=== PATIENT | female | born 1990 | race African-American/Black ===

== ENCOUNTER 2016-05-23 14:42 | Emergency (ER) | payer OTHER ==
--- NOTE | 2016-05-23 16:45 | EDDOCDS ---
Physician Documentation [facility] Name: Maribeth Birch Age: 26 yrs Sex: Female : 1990 Arrival Date: 05/23/2016 Time: 14:42 Bed TR8 Private MD: RIN Grimaldo Disposition: 05/23/16 16:15 Discharged to Home/Self Care. Impression: Acute upper respiratory infections of multiple and unspecified sites, Other viral conjunctivitis. - Condition is Stable. - Discharge Instructions: Eye - Viral Conjunctivitis, Upper Respiratory Infection, Adult. - Prescriptions for Prednisone 20 mg Oral Tablet - take 1 tablet by ORAL route once daily for 5 days; 5 tablet. Acular 0.5 % Ophthalmic Drops - instill 1 drop by OPHTHALMIC route every 6 hours into affected eye(s); 5 milliliter. Guaifenesin- DM 10-100 mg/5 mL Oral Liquid - take 5 milliliter by ORAL route every 4 hours As needed; 100 milliliter. - Medication Reconciliation, Local Pharmacy Hours form. - Follow up: RIN Grimaldo; When: Call to arrange an appointment; Reason: Wound/Symptom Recheck, Recheck today's complaints, Worsening of conditions, Continuance of care. - Problem is an ongoing problem. - Symptoms are unchanged. Historical: - Allergies: No known drug Allergies; - Home Meds: 1. none - PMHx: none; - PSHx: Breast Augmentation; - Social history: Smoking status: Patient states was never smoker of tobacco. No barriers to communication noted, The patient speaks fluent Serbian. - Family history: No immediate family members are acutely ill. - : The pt / caregiver states he / she is not on anticoagulants. Home medication list is obtained from the patient. - Exposure Risk Screening:: None identified. 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 6 in. (167.64 cm) (R); Pain 5/10; 14:46 Body Mass Index 20.98 (58.97 kg, 167.64 cm) gr2 MDM: 15:37 Strep Screen, Nursing ordered. cc10 16:14 GATS (NEGATIVE STREP SCREEN) Ordered. EDMS 16:22 Financial registration complete. ks16 16:33 [facility] Payment Agreement was scanned into MEDHOST and attached to record. [email or web address] Signatures: Dispatcher MedHost EDMS Ruslan Barger, RN RN Noemi Keen RN RN Desmond Posey, PA-C PA-C cc10 Nuria Nelson, Reg Reg ks16 The chart was reviewed and I authenticate all verbal orders and agree with the evaluation and treatment provided.Attachments: 16:33 [facility] Payment Agreement [email or web address] MTDD
--- NOTE | 2016-05-23 16:45 | EDDOCDS ---
Nurse's Notes [facility] Name: Maribeth Birch Age: 26 yrs Sex: Female : 1990 Arrival Date: 05/23/2016 Time: 14:42 Bed TR8 Private MD: RIN Grimaldo Diagnosis: Acute upper respiratory infections of multiple and unspecified sites;Other viral conjunctivitis Presentation: 05/23 14:55 Presenting complaint: Patient states: sore throat since yesterday today headache kpj redness and drainage from both eyes. Mechanism of Injury: No Mechanism of Injury. The patient denies any loss of vision. Adult Sepsis Screening: The patient does not have new or worsening altered mentation. Patient's respiratory rate is less than 22. Systolic blood pressure is greater than 100. Patient has a qSOFA score of 0- Negative Sepsis Screen. Suicide/Homicide risk assessment- the patient denies having any suicidal and/or homicidal ideations and does not present with any other emotional, behavioral or mental health complaints. Status: The patient is a dependent. Transition of care: patient was not received from another setting of care. 14:55 Acuity: REBECA Level 5 [facility] 14:55 Method Of Arrival: Walkin/Carried/Asstd [facility] Triage Assessment: 14:57 General: Appears in no apparent distress, Behavior is appropriate for age, pleasant. [facility] Pain: Location: throat Pain currently is 7 out of 10 on a pain scale. Pt Declines HIV testing. Neurological: Level of Consciousness is awake, alert, Oriented to person, place, time, Reports headache. EENT: Sclera/Cornea are reddened in outer aspect of conjuctiva of right eye, inner aspect of conjuctiva of right eye, outer aspect of conjuctiva of left eye and inner aspect of conjunctiva of left eye Reports pain when swallowing Pain is 7 out of 10 on a pain scale. Respiratory: Airway is patent Respiratory effort is even, unlabored, Respiratory pattern is regular, symmetrical. Derm: Skin is pink, warm & dry. 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 none - PMHx: none; - PSHx: Breast Augmentation; - Social history: Smoking status: Patient states was never smoker of tobacco. No barriers to communication noted, The patient speaks fluent Belarusian. - Family history: No immediate family members are acutely ill. - : The pt / caregiver states he / she is not on anticoagulants. Home medication list is obtained from the patient. - Exposure Risk Screening:: None identified. Screenin:36 Screening information is obtained from the patient. Primary language is Belarusian. Fall dwg risk: No risks identified. Assistance ADL's: requires no assistance with activities of daily living. Abuse/DV Screen: The patient / caregiver reports he/she is: not in a situation that causes fear, pain or injury. Nutritional screening: No deficits noted. Advance Directives: Currently, there is no health care proxy. There is no active DNR order. There is no living will. There is no Power of Awning Hanger Helper. Advance directive information has not previously been placed in an [facility] medical record. Further advance directive information is declined. home support is adequate. Assessment: 16:36 The patient / caregiver is instructed regarding the plan of care and ED course. dwg Physical assessment to be completed by RUBINA/CHARMAINE. Vital Signs: 14:46 BP 112 / 72; Pulse 76; Resp 18 S; Temp 97.4(O); Pulse Ox 100% on R/A; Weight 58.97 kg gr2 (R); Height 5 ft. 6 in. (167.64 cm) (R); Pain 5/10; 14:46 Body Mass Index 20.98 (58.97 kg, 167.64 cm) gr2 Vitals: 14:46 Log In Time: May 23, 2016 at 14:46. gr2 16:13 Strep Screen is obtained and tested: Negative, a GATSNEG culture is ordered in [facility] and sent. ED Course: 14:44 Patient visited by Ciro Terry. gr2 14:44 Patient moved to Waiting gr2 14:45 Dillan [facility] is Private Physician. gr2 14:49 Patient visited by Ciro Terry. gr2 14:50 Patient moved to Pre RCE gr2 14:57 Triage Initiated [facility] 15:35 Patient moved to Triage 1 [facility] 15:57 Desmond [facility]otson [facility] cc10 15:57 Kecia Aquino MD is Attending Physician. cc10 15:58 Patient visited by Desmond Dotson PA-C. cc10 15:58 Patient visited by Desmond Dotson PA-C. cc10 16:15 Dillan [facility] is Referral Physician. cc10 16:25 Patient moved to [address] 16:26 Patient name changed from Maribeth\S\\S\Queta\S\ to Maribeth\S\ \S\Queta. EDMS 16:33 [facility] Payment Agreement was scanned into [employer] and attached to record. ks16 16:39 Patient has correct armband on for positive identification. [facility] 16:39 No IV's were initiated during this patient's visit. No procedures done that require dwg assistance. Order Results: There are currently no results for this order. Outcome: 16:15 Discharge ordered by Provider. cc10 16:39 The following High Risk Discharge criteria are identified: None. Discharged to home dwg ambulatory. Condition: good Condition: stable. No special radiology studies were completed. 16:39 Discharge Assessment: patient administered narcotics - no. Property sent home with dwg patient. 16:43 Patient left the ED. cc10 Signatures: Dispatcher MedHo EDAR Ruslan Barger, RN JOSHUA [facility] Noemi Adame RN RN Yeimi RichardRN RN [facility] Crio Terry gr2 Desmond Dotson PA-C PA-C cc Nuria Nelson, Reg Reg ks16 MTDD
--- NOTE | 2016-05-25 17:45 | EDDOCDS ---
Physician Documentation [facility] Name: Maribeth Birch Age: 26 yrs Sex: Female : 1990 Arrival Date: 05/23/2016 Time: 14:42 Bed TR8 Private MD: RIN Grimaldo Disposition: 05/23/16 16:15 Discharged to Home/Self Care. Impression: Acute upper respiratory infections of multiple and unspecified sites, Other viral conjunctivitis. - Condition is Stable. - Discharge Instructions: Eye - Viral Conjunctivitis, Upper Respiratory Infection, Adult. - Prescriptions for Prednisone 20 mg Oral Tablet - take 1 tablet by ORAL route once daily for 5 days; 5 tablet. Acular 0.5 % Ophthalmic Drops - instill 1 drop by OPHTHALMIC route every 6 hours into affected eye(s); 5 milliliter. Guaifenesin- DM 10-100 mg/5 mL Oral Liquid - take 5 milliliter by ORAL route every 4 hours As needed; 100 milliliter. - Medication Reconciliation, Local Pharmacy Hours form. - Follow up: RIN Grimaldo; When: Call to arrange an appointment; Reason: Wound/Symptom Recheck, Recheck today's complaints, Worsening of conditions, Continuance of care. - Problem is an ongoing problem. - Symptoms are unchanged. Historical: - Allergies: No known drug Allergies; - Home Meds: 1. none - PMHx: none; - PSHx: Breast Augmentation; - Social history: Smoking status: Patient states was never smoker of tobacco. No barriers to communication noted, The patient speaks fluent German. - Family history: No immediate family members are acutely ill. - : The pt / caregiver states he / she is not on anticoagulants. Home medication list is obtained from the patient. - Exposure Risk Screening:: None identified. 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 6 in. (167.64 cm) (R); Pain 5/10; 14:46 Body Mass Index 20.98 (58.97 kg, 167.64 cm) gr2 MDM: 15:37 Strep Screen, Nursing ordered. cc10 16:14 GATS (NEGATIVE STREP SCREEN) Ordered. EDMS 16:22 Financial registration complete. : [facility] Payment Agreement was scanned into MEDHOST and attached to record. 05/24 10:23 T-Sheet-- Draft Copy was scanned into [employer] and attached to record. gb Signatures: Dispatcher [employer] EDMS Ruslan Barger, RN RN Noemi Mcneill RN RN Rama Alonso, Reg Reg gb Desmond Dotson, PA-C PA-C cc10 Nuria Nelson, Reg Reg ks16 The chart was reviewed and I authenticate all verbal orders and agree with the evaluation and treatment provided.Attachments: 05/23 16:33 [facility] Payment Agreement 05/24 10:23 T-Sheet-- Draft Copy gb Chart Complete MTDD
--- NOTE | 2016-05-25 17:45 | EDDOCDS ---
Nurse's Notes [facility] Name: Maribeth Birch Age: 26 yrs Sex: Female : 1990 Arrival Date: 05/23/2016 Time: 14:42 Bed TR8 Private MD: RIN Grimaldo Diagnosis: Acute upper respiratory infections of multiple and unspecified sites;Other viral conjunctivitis Presentation: 05/23 14:55 Presenting complaint: Patient states: sore throat since yesterday today headache kpj redness and drainage from both eyes. Mechanism of Injury: No Mechanism of Injury. The patient denies any loss of vision. Adult Sepsis Screening: The patient does not have new or worsening altered mentation. Patient's respiratory rate is less than 22. Systolic blood pressure is greater than 100. Patient has a qSOFA score of 0- Negative Sepsis Screen. Suicide/Homicide risk assessment- the patient denies having any suicidal and/or homicidal ideations and does not present with any other emotional, behavioral or mental health complaints. Status: The patient is a dependent. Transition of care: patient was not received from another setting of care. 14:55 Acuity: REBECA Level 5 [facility] 14:55 Method Of Arrival: Walkin/Carried/Asstd [facility] Triage Assessment: 14:57 General: Appears in no apparent distress, Behavior is appropriate for age, pleasant. [facility] Pain: Location: throat Pain currently is 7 out of 10 on a pain scale. Pt Declines HIV testing. Neurological: Level of Consciousness is awake, alert, Oriented to person, place, time, Reports headache. EENT: Sclera/Cornea are reddened in outer aspect of conjuctiva of right eye, inner aspect of conjuctiva of right eye, outer aspect of conjuctiva of left eye and inner aspect of conjunctiva of left eye Reports pain when swallowing Pain is 7 out of 10 on a pain scale. Respiratory: Airway is patent Respiratory effort is even, unlabored, Respiratory pattern is regular, symmetrical. Derm: Skin is pink, warm & dry. 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 none - PMHx: none; - PSHx: Breast Augmentation; - Social history: Smoking status: Patient states was never smoker of tobacco. No barriers to communication noted, The patient speaks fluent Serbian. - Family history: No immediate family members are acutely ill. - : The pt / caregiver states he / she is not on anticoagulants. Home medication list is obtained from the patient. - Exposure Risk Screening:: None identified. Screenin:36 Screening information is obtained from the patient. Primary language is Serbian. Fall dwg risk: No risks identified. Assistance ADL's: requires no assistance with activities of daily living. Abuse/DV Screen: The patient / caregiver reports he/she is: not in a situation that causes fear, pain or injury. Nutritional screening: No deficits noted. Advance Directives: Currently, there is no health care proxy. There is no active DNR order. There is no living will. There is no Power of Plate Former. Advance directive information has not previously been placed in an [facility] medical record. Further advance directive information is declined. home support is adequate. Assessment: 16:36 The patient / caregiver is instructed regarding the plan of care and ED course. dwg Physical assessment to be completed by RUBINA/CHARMAINE. Vital Signs: 14:46 BP 112 / 72; Pulse 76; Resp 18 S; Temp 97.4(O); Pulse Ox 100% on R/A; Weight 58.97 kg gr2 (R); Height 5 ft. 6 in. (167.64 cm) (R); Pain 5/10; 14:46 Body Mass Index 20.98 (58.97 kg, 167.64 cm) gr2 Vitals: 14:46 Log In Time: May 23, 2016 at 14:46. gr2 16:13 Strep Screen is obtained and tested: Negative, a GATSNEG culture is ordered in [facility] and sent. ED Course: 14:44 Patient visited by Ciro Terry. gr2 14:44 Patient moved to Waiting gr2 14:45 Dillan [facility] is Private Physician. gr2 14:49 Patient visited by Ciro Terry. gr2 14:50 Patient moved to Pre RCE gr2 14:57 Triage Initiated [facility] 15:35 Patient moved to Triage 1 [facility] 15:57 Des[facility] cc[facility] 15:57 Kecia Aquino MD is Attending Physician. cc10 15:58 Patient visited by Desmond Dotson PA-C. cc10 15:58 Patient visited by Desmond Dotson PA-C. cc10 16:15 Dillan [facility] is Referral Physician. cc10 16:25 Patient moved to [address] 16:26 Patient name changed from Maribeth\S\\S\Queta\S\ to Maribeth\S\ \S\Queta. EDMS 16:33 [facility] Payment Agreement was scanned into [employer] and attached to record. ks16 16:39 Patient has correct armband on for positive identification. [facility] 16:39 No IV's were initiated during this patient's visit. No procedures done that require [facility] assistance. 05/24 10:23 T-Sheet-- Draft Copy was scanned into [employer] and attached to record. gb Order Results: Lab Order: GATS (NEGATIVE STREP SCREEN); SPEC'M 05/23/16 16:11 Test: GATS CULTURE (NEG STREP SCR); Value: GATS RESULT NEGATIVE FOR STREP PYOGENES (GROUP A); Status: F Test: GATS CULTURE (NEG STREP SCR); Value: <EXTERNAL COMMENT eCWMed> FULL REPORT IN LAB NOTES (eCW and Medent).; Status: F Outcome: 05/23 16:15 Discharge ordered by Provider. [facility] 16:39 The following High Risk Discharge criteria are identified: None. Discharged to home [facility] ambulatory. Condition: good Condition: stable. No special radiology studies were completed. 16:39 Discharge Assessment: patient administered narcotics - no. Property sent home with [facility] patient. 16:43 Patient left the ED. cc10 Signatures: Dispatcher MedHost EDID Ruslan Barger, RN JOSHUA [facility] Noemi Adame RN RN [facility] Rama Musa, Reg Reg gb Yeimi MckeonRN JOSHUA [facility] Ciro Terry gr2 Desmond Dotson PA-C PA-C cc Nuria Nelson, Reg Reg ks16 Chart Complete MTDD
--- NOTE | 2016-05-25 17:45 | EDDOCDS ---
Physician Documentation [facility] Name: Maribeth Birch Age: 26 yrs Sex: Female : 1990 Arrival Date: 05/23/2016 Time: 14:42 Bed TR8 Private MD: RIN Grimaldo Disposition: 05/23/16 16:15 Discharged to Home/Self Care. Impression: Acute upper respiratory infections of multiple and unspecified sites, Other viral conjunctivitis. - Condition is Stable. - Discharge Instructions: Eye - Viral Conjunctivitis, Upper Respiratory Infection, Adult. - Prescriptions for Prednisone 20 mg Oral Tablet - take 1 tablet by ORAL route once daily for 5 days; 5 tablet. Acular 0.5 % Ophthalmic Drops - instill 1 drop by OPHTHALMIC route every 6 hours into affected eye(s); 5 milliliter. Guaifenesin- DM 10-100 mg/5 mL Oral Liquid - take 5 milliliter by ORAL route every 4 hours As needed; 100 milliliter. - Medication Reconciliation, Local Pharmacy Hours form. - Follow up: RIN Grimaldo; When: Call to arrange an appointment; Reason: Wound/Symptom Recheck, Recheck today's complaints, Worsening of conditions, Continuance of care. - Problem is an ongoing problem. - Symptoms are unchanged. Historical: - Allergies: No known drug Allergies; - Home Meds: 1. none - PMHx: none; - PSHx: Breast Augmentation; - Social history: Smoking status: Patient states was never smoker of tobacco. No barriers to communication noted, The patient speaks fluent Greek. - Family history: No immediate family members are acutely ill. - : The pt / caregiver states he / she is not on anticoagulants. Home medication list is obtained from the patient. - Exposure Risk Screening:: None identified. 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 6 in. (167.64 cm) (R); Pain 5/10; 14:46 Body Mass Index 20.98 (58.97 kg, 167.64 cm) gr2 MDM: 15:37 Strep Screen, Nursing ordered. cc10 16:14 GATS (NEGATIVE STREP SCREEN) Ordered. EDMS 16:22 Financial registration complete. : [facility] Payment Agreement was scanned into MEDHOST and attached to record. 05/24 10:23 T-Sheet-- Draft Copy was scanned into [employer] and attached to record. gb Signatures: Dispatcher [employer] EDMS Ruslan Barger, RN RN Noemi Mcneill RN RN Rama Alonso, Reg Reg gb Desmond Dotson, PA-C PA-C cc10 Nuria Nelson, Reg Reg ks16 The chart was reviewed and I authenticate all verbal orders and agree with the evaluation and treatment provided.Attachments: 05/23 16:33 [facility] Payment Agreement 05/24 10:23 T-Sheet-- Draft Copy gb Chart Complete MTDD
== END 2016-05-23 16:43 | disposition home or self-care (01) ==
LOC: M ED 14:42
DX: J06.9 Acute upper respiratory infection, unspecified (principal); B30.9 Viral conjunctivitis, unspecified